=== PATIENT | female | born 2000 | race Caucasian/White ===

== ENCOUNTER 2024-09-17 22:35 | Emergency (ER) | payer OTHER ==
[2024-09-17 22:44] VITALS: BP 101/72; PULSE 92; RESP 16; TEMP 98.5; BMI 28.5
== END 2024-09-17 23:00 | disposition home or self-care (01) ==
LOC: FER 22:35
DX: M25.531 Pain in right wrist (principal); R20.2 Paresthesia of skin
CPT/HCPCS: 99283-25